=== PATIENT | female | born 1970 | race American Indian/Alaskan Native ===

== ENCOUNTER 2017-09-26 21:47 | Inpatient (IN) | payer MEDICAID ==
[2017-09-26 22:16] LABS: Basophils % (Auto) 0.3 % (0.0-1.8); Eosinophils % (Auto) 1.3 % (0.0-4.3); Hemoglobin 12.2 gm/dl (10.1-14.3); Mean Corpuscular HGB Conc 31 % (30-34); Mean Corpuscular Volume 74 fl (79-97); Platelet Count 197 K/mm3 (140-440); Red Blood Count 5.24 M/mm3 (3.65-5.03); White Blood Count 4.9 K/mm3 (4.5-11.0)
[2017-09-26 22:27] LABS: Mean Corpuscular Hemoglobin 23 pg (28-32); Red Cell Distribution Width 20.3 % (13.2-15.2)
[2017-09-26 22:37] LABS: Anion Gap 19 mmol/L; BUN/Creatinine Ratio 22; Blood Urea Nitrogen 13 mg/dL (7-17); Calcium 8.9 mg/dL (8.4-10.2); Carbon Dioxide 22 mmol/L (22-30); Chloride 105.1 mmol/L (98-107); Glucose 100 mg/dL (65-100); Sodium 142 mmol/L (137-145)
[2017-09-27] MEDS ORDERED: LASIX IV ONE (03:06)
[2017-09-27] MEDS ORDERED: NITROSTAT SL ONE (03:06)
--- NOTE | 2017-09-27 03:11 | Emergency Department Report ---
ED Shortness of Breath HPI - General Chief Complaint: Chest Pain Stated Complaint: CHEST PAIN/SOB Time Seen by Provider: 09/27/17 02:58 Source: patient Mode of arrival: Ambulatory Limitations: No Limitations - History of Present Illness Initial Comments: Patient is 47-year-old female with history of dilated cardiomyopathy, hypertension and hyperthyroidism present to the ER with shortness of breath, diffuse swelling, chest pain for the last 4 days getting worse since last night. Patient denied any fever, nausea or vomiting. Patient stated that she is not compliant with her medications. MD Complaint: shortness of breath, chest pain - Related Data Allergies Allergy/AdvReac Type Severity Reaction Status Date / Time lisinopril AdvReac Shortness Verified 09/26/17 21:57 of Breath ED Review of Systems ROS: Stated complaint: CHEST PAIN/SOB Other details as noted in HPI Comment: All other systems reviewed and negative Constitutional: denies: chills, fever Respiratory: denies: cough, orthopnea, shortness of breath, SOB with exertion Cardiovascular: chest pain, palpitations, dyspnea on exertion, orthopnea, edema , paroxysmal nocturnal dyspnea Gastrointestinal: denies: abdominal pain, nausea, vomiting, diarrhea, constipation, hematemesis, melena, hematochezia Genitourinary: denies: urgency, dysuria, frequency, hematuria Neurological: denies: headache, weakness, numbness, paresthesias ED Past Medical Hx - Past Medical History Hx Hypertension: Yes Hx Congestive Heart Failure: Yes Additional medical history: Hyperthyroid - Surgical History Additional Surgical History: C/S - Social History Smoking Status: Never Smoker Substance Use Type: None ED Physical Exam - General Limitations: No Limitations General appearance: alert, in distress (moderate respiratory distress) - Head Head exam: Present: atraumatic, normocephalic, normal inspection - Eye Eye exam: Present: normal appearance, PERRL - ENT ENT exam: Present: normal exam, normal orophraynx, mucous membranes moist - Neck Neck exam: Present: normal inspection, full ROM. Absent: tenderness, meningismus, lymphadenopathy - Respiratory Respiratory exam: Present: rales, decreased breath sounds. Absent: wheezes, rhonchi, stridor - Cardiovascular Cardiovascular Exam: Present: tachycardia, gallop - GI/Abdominal GI/Abdominal exam: Present: soft, normal bowel sounds. Absent: tenderness, guarding, rebound, rigid, mass, bruit, pulsatile mass, hernia - Extremities Exam Extremities exam: Present: normal inspection, pedal edema. Absent: calf tenderness - Back Exam Back exam: Present: normal inspection, full ROM. Absent: CVA tenderness (R), CVA tenderness (L), muscle spasm, paraspinal tenderness, vertebral tenderness - Neurological Exam Neurological exam: Present: alert, oriented X3, CN II-XII intact, normal gait - Skin Skin exam: Present: warm, intact, normal color. Absent: cyanosis ED Course Vital Signs 09/26/17 09/27/17 09/27/17 21:58 02:00 05:02 Temperature 98.2 F Pulse Rate 106 H 95 H 95 H Respiratory 20 20 Rate Blood Pressure 184/123 164/119 Blood Pressure 164/119 [Left] O2 Sat by Pulse 98 100 Oximetry ED Medical Decision Making - Lab Data Result diagrams: 09/26/17 22:01 09/26/17 22:01 - EKG Data -: EKG Interpreted by Nh EKG shows normal: sinus rhythm Rate: tachycardia - EKG Data Interpretation: no acute changes - Radiology Data Radiology results: image reviewed Chest x-ray showed Pulmonary edema, right pleural effusion. - Medical Decision Making Discussed with Dr. Annemarie Posye, I presented the patient to her, she agreed to admit the patient to her service. Critical care attestation.: If time is entered above; I have spent that time in minutes in the direct care of this critically ill patient, excluding procedure time. ED Disposition Clinical Impression: Shortness of breath, Chest pain, Malignant hypertension, Acute exacerbation of CHF (congestive heart failure) Disposition: -09 OP ADMIT IP TO THIS HOSP Is pt being admited?: Yes Condition: Stable Instructions: Chest Pain (ED), Hypertension (ED) Referrals: PRIMARY CARE, [Primary Care Provider] - 3-5 Days
[2017-09-27] MEDS ORDERED: BABY ASPIRIN PO ONE (05:12)
[2017-09-27] MEDS ORDERED: TYLENOL PO PRN (06:06)
[2017-09-27] MEDS ORDERED: MILK OF MAGNESIA PO PRN (06:06)
[2017-09-27] MEDS ORDERED: DULCOLAX PR PRN (06:06)
[2017-09-27] MEDS ORDERED: ZOFRAN IV PRN (06:06)
--- NOTE | 2017-09-27 06:16 | History and Physical Report ---
History of Present Illness Date of examination: 09/27/17 History of present illness: 47-year-old woman with a history of CHF, hypertension, hyperthyroidism comes to the emergency room complaining of shortness of breath, PND, orthropnea and lower extremity edema sice thursday. Also complaining of chest pain in the epigastric area described as sharp, intermittent, lasting for a few seconds, intensity 3/10, no radiation, cannot identify exacerbating or relieving factors. Denies nausea vomiting, diaphoresis or palpitation. States she is compliant with mediations,but ran out of her thyroid medications Review Of Systems: Constitutional: no weight loss Ears, eyes, nose, mouth and throat: no nasal congestion, no nasal discharge, no sinus pressure, blurry vision, diplopia Neck: No neck pain or rigidity. Cardiovascular: no palpitations Respiratory: No cough Gastrointestinal: no abdominal pain, hematochezia Genitourinary : no dysuria, frequency , hematuria Musculoskeletal: no muscle ache Integumentary: no rash, no pruritis Neurological: no parathesias, focal weakness Endocrine: no cold or heat intolerance, no polyuria or polydipsia Hematologic/Lymphatic: no easy bruising, no easy bleeding, no gland swelling Allergic/Immunologic: no urticaria, no angioedema. PAST MEDICAL HISTORY:CHF, hypertension, hyperthyroidism PAST SURGICAL HISTORY: None SOCIAL HISTORY: No alcohol, tobacco, no drugs FAMILY HISTORY: Hypertension Medications and Allergies Allergies Allergy/AdvReac Type Severity Reaction Status Date / Time lisinopril AdvReac Shortness Verified 09/26/17 21:57 of Breath Home Medications Medication Instructions Recorded Confirmed Last Taken Type Carvedilol 12.5 mg PO BID 09/27/17 09/27/17 Unknown History Lasix 40 mg PO DAILY 09/27/17 09/27/17 Unknown History Losartan 100 mg PO DAILY 09/27/17 09/27/17 Unknown History Methimazole 10 mg PO TID 30 Days 09/29/17 Unknown Rx traMADol [Ultram 50 MG tab] 50 mg PO Q6HR PRN #12 tablet 09/29/17 Unknown Rx Exam - Physical Exam Narrative exam: Gen. appearance: Patient lying in bed in no acute distress HEENT: Normocephalic/atraumatic, pupils equal round reactive to light, extra alkaline movement intact, no scleral icterus, no JVD or thyromegaly or nodule, neck is supple, mucous membrane moist, no erythema or exudate Heart: S1-S2, regular rate and rhythm Lungs: Clear to auscultation bilateral breathing comfortable Abdomen: Positive bowel sounds, nontender, nondistended, no organomegaly Extremities: No edema, cyanosis, clubbing Neuro:: Oriented 3 , cranial nerves II-12 intact, speech, motor intact Skin: No rash, nodules, warm dry - Constitutional Vitals: Temp Pulse Resp BP Pulse Ox 98.2 F 95 H 20 164/119 100 09/26/17 21:58 09/27/17 05:02 09/27/17 04:00 09/27/17 05:02 09/27/17 04:00 Results - Labs CBC & Chem 7: 09/28/17 06:41 09/28/17 06:41 Labs: Abnormal lab results 09/26/17 09/26/17 09/27/17 Range/Units 22:01 22:01 03:19 RBC 5.24 H (3.65-5.03) M/mm3 MCV 74 L (79-97) fl MCH 23 L (28-32) pg RDW 20.3 H (13.2-15.2) % Creatinine 0.6 L (0.7-1.2) mg/dL NT-Pro-B Natriuret Pep 3110 H (0-450) pg/mL TSH (0.270-4.200) mlU/mL Free T4 (0.76-1.46) ng/dL 09/27/17 Range/Units 03:19 RBC (3.65-5.03) M/mm3 MCV (79-97) fl MCH (28-32) pg RDW (13.2-15.2) % Creatinine (0.7-1.2) mg/dL NT-Pro-B Natriuret Pep (0-450) pg/mL TSH 0.007 L (0.270-4.200) mlU/mL Free T4 1.92 H (0.76-1.46) ng/dL - Imaging and Cardiology EKG: image reviewed Chest x-ray: image reviewed Assessment and Plan Assessment CHF exacerbation, acute on chronic, systolic dysfunction Chest pain Hypertension Hyperthyroidism Plan Admit to medicine Diurese with IV Lasix Continue beta lavon, aspirin ARB Check cardiac enzymes, echo Consult cardiology, obtain stress test when heart failure stable DVT prophylaxis
--- NOTE | 2017-09-27 06:48 | XRay Report ---
FINAL REPORT PROCEDURE: XR CHEST 1V AP TECHNIQUE: Chest radiograph anteroposterior view. CPT 80197 HISTORY: chest pain COMPARISON: No prior studies are available for comparison. FINDINGS: Heart: The heart is enlarged Mediastinum/Vessels: Normal. Lungs/Pleural space: Lungs are well-expanded. There is small bilateral pleural effusions. There are no pneumothoraces. There are no discrete infiltrates.. Bony thorax: No acute osseous abnormality. Life support devices: None. IMPRESSION: Cardiomegaly with small bilateral pleural effusions..
[2017-09-27 07:28] LABS: Creatine Kinase MB 3.2 ng/mL (0.0-4.0)
[2017-09-27 07:29] LABS: Creatine Kinase 91 units/L (30-135)
[2017-09-27] MEDS: LOVENOX SUB-Q SCH (10:33)
--- NOTE | 2017-09-27 10:33 | Consultation ---
History of Present Illness Consult date: 09/27/17 Consult reason: congestive heart failure History of present illness: 48 year old -[place] female presenting with shortness of breath. She has a history of dilated cardiomyopathy and is being followed by a director of rooms in [facility]. She denies any chest pains or palpitations. Has some increase in abdominal girth and some pedal edema Past History Past Medical History: heart failure, hyperthyroidism, hypertension Past Surgical History: No surgical history Social history: denies: smoking, alcohol abuse Family history: no significant family history Medications and Allergies Allergies Allergy/AdvReac Type Severity Reaction Status Date / Time lisinopril AdvReac Shortness Verified 09/26/17 21:57 of Breath Home Medications Medication Instructions Recorded Confirmed Last Taken Type Carvedilol 12.5 mg PO BID 09/27/17 09/27/17 Unknown History Lasix 40 mg PO DAILY 09/27/17 09/27/17 Unknown History Losartan 100 mg PO DAILY 09/27/17 09/27/17 Unknown History Methimazole 10 mg PO TID 09/27/17 09/27/17 Unknown History Active Meds: Active Medications Acetaminophen (Tylenol) 650 mg PO Q4H PRN PRN Reason: Pain MILD(1-3)/Fever >100.5/ROE Bisacodyl (Dulcolax) 10 mg MI QDAY PRN PRN Reason: Constipation unrelieved by MOM Carvedilol (Coreg) 12.5 mg PO BID GINO Enoxaparin Sodium (Lovenox) 40 mg SUB-Q QDAY GINO Furosemide (Lasix) 40 mg IV BID@0600,1800 [facility] Losartan Potassium (Cozaar) 100 mg PO DAILY GINO Magnesium Hydroxide (Milk Of Magnesia) 30 ml PO Q4H PRN PRN Reason: Constipation Methimazole (Tapazole) 10 mg PO TID GINO Metoprolol Tartrate (Lopressor) 25 mg PO BID GINO Ondansetron HCl (Zofran) 4 mg IV Q8H PRN PRN Reason: N/V unrelieved by Reglan Oxycodone/Acetaminophen (Percocet 5/325) 1 tab PO Q6H PRN PRN Reason: Pain, Moderate (4-6) Review of Systems Constitutional: weight gain, fatigue, weakness, malaise Ears, nose, mouth and throat: deferred Cardiovascular: shortness of breath, dyspnea on exertion Respiratory: cough, cough with sputum, no wheezing Gastrointestinal: no abdominal pain, no nausea, no vomiting Genitourinary Female: no dyspareunia, no dysmenorrhea, no pelvic pain Musculoskeletal: no neck stiffness, no neck pain, no muscle weakness, no muscle cramps Integumentary: no rash, no pruritis Neurological: no weakness, no parathesias, no numbness, no headaches Endocrine: heat intolerance, no polydipsia, no polyuria Hematologic/Lymphatic: no easy bruising, no easy bleeding Allergic/Immunologic: no urticaria, no allergic rhinitis Physical Examination Vital Signs Temp Pulse Resp BP Pulse Ox 98.2 F 106 H 20 184/123 98 09/26/17 21:58 09/26/17 21:58 09/26/17 21:58 09/26/17 21:58 09/26/17 21:58 General appearance: no acute distress, cachectic HEENT: Positive: PERRL, Normocephaly Neck: Positive: neck supple, trachea midline, JVD/HJR Cardiac: Positive: Regular Rate, S1/S2, S3, Systolic Murmur, PMI, Dilated, Laterally Displaced Lungs: Positive: clear to auscultation, No Wheeze, Rales, Rhonchi Neuro: Positive: Grossly Intact Abdomen: Positive: Unremarkable, Soft, Distended Extremities: Present: +2 Edema Results 09/26/17 22:01 09/26/17 22:01 Cardiac Enzymes 09/27/17 Range/Units 06:44 CK-MB (CK-2) 3.2 (0.0-4.0) ng/mL CBC 09/26/17 Range/Units 22:01 WBC 4.9 (4.5-11.0) K/mm3 RBC 5.24 H (3.65-5.03) M/mm3 Hgb 12.2 (10.1-14.3) gm/dl Hct 39.0 (30.3-42.9) % Plt Count 197 (140-440) K/mm3 Lymph # 1.3 (1.2-5.4) K/mm3 [place] # 0.3 (0.0-0.8) K/mm3 Eos # 0.1 (0.0-0.4) K/mm3 Baso # 0.0 (0.0-0.1) K/mm3 Comprehensive Metabolic Panel 09/26/17 Range/Units 22:01 Sodium 142 (137-145) mmol/L Potassium 4.0 (3.6-5.0) mmol/L Chloride 105.1 (98-107) mmol/L Carbon Dioxide 22 (22-30) mmol/L BUN 13 (7-17) mg/dL Creatinine 0.6 L (0.7-1.2) mg/dL Glucose 100 (65-100) mg/dL Calcium 8.9 (8.4-10.2) mg/dL - EKG Interpretation EKG shows: tachycardia EKG interpretations - Telemetry EKG Rhythm: Sinus Tachycardia Assessment and Plan 1. Acute decompensated chronic combined systolic and diastolic heart failure 2. Hyperthyroidism 3. Systemic arterial hypertension Plan. Check TSH levels. Check echocardiogram. Obtain records from director of rooms at [facility]. Resume home medication
[2017-09-27] MEDS: TAPAZOLE PO SCH ×3 (10:34→22:50)
[2017-09-27] MEDS: LOPRESSOR PO SCH ×2 (10:34→22:55)
[2017-09-27] MEDS: COREG PO SCH ×2 (14:18→22:50)
[2017-09-27] MEDS: COZAAR PO SCH (14:18)
[2017-09-27 14:39] LABS: Creatine Kinase MB 3.1 ng/mL (0.0-4.0)
[2017-09-27 14:42] LABS: Creatine Kinase 70 units/L (30-135)
--- NOTE | 2017-09-27 16:32 | Event Note ---
Date: 09/27/17 Pt admitted today adn had been seen by the admitting doctor. Currently on appropriable Mx for exacerbation, acute on chronic, systolic dysfunction Acute on chronic systolic Heart failure Chest pain Hypertension Hyperthyroidism
[2017-09-27] MEDS: LASIX IV SCH (18:57)
[2017-09-27] MEDS: PERCOCET 5/325 PO PRN (23:39)
[2017-09-28] MEDS: LASIX IV SCH ×2 (06:36→18:28)
[2017-09-28] MEDS: PERCOCET 5/325 PO PRN ×2 (06:36→14:14)
[2017-09-28 07:53] LABS: Anion Gap 18 mmol/L; BUN/Creatinine Ratio 21; Basophils % (Auto) 0.9 % (0.0-1.8); Blood Urea Nitrogen 17 mg/dL (7-17); Calcium 8.2 mg/dL (8.4-10.2); Carbon Dioxide 25 mmol/L (22-30); Chloride 103.6 mmol/L (98-107); Eosinophils % (Auto) 1.4 % (0.0-4.3); Glucose 73 mg/dL (65-100); Hematocrit 37.7 % (30.3-42.9); Hemoglobin 11.9 gm/dl (10.1-14.3); Mean Corpuscular HGB Conc 32 % (30-34); Mean Corpuscular Volume 74 fl (79-97); Platelet Count 172 K/mm3 (140-440); Potassium 4.2 mmol/L (3.6-5.0); Red Blood Count 5.13 M/mm3 (3.65-5.03); Sodium 142 mmol/L (137-145); White Blood Count 3.8 K/mm3 (4.5-11.0)
[2017-09-28 07:59] LABS: Mean Corpuscular Hemoglobin 23 pg (28-32); Red Cell Distribution Width 20.4 % (13.2-15.2)
--- NOTE | 2017-09-28 11:05 | Progress Note ---
Assessment and Plan Acute systolic heart failure Hx of Cardiomopathy since 02/2014 Hyperthyroidism Hypertension Right LE wound Recommendations: Echocardiogram today. Continue medical therapy for systolic heart failure. Subjective Date of service: 09/28/17 Interval history: Patient reports she is feeling better since initial treatment. Objective Vital Signs Temp Pulse Resp BP BP Pulse Ox 09/28/17 09:00 77 09/28/17 05:18 97.5 F L 74 20 115/79 97 09/28/17 01:38 76 09/28/17 00:40 98.3 F 76 20 106/64 96 09/27/17 22:55 90 142/96 09/27/17 22:50 90 142/96 09/27/17 22:00 20 97 09/27/17 20:54 97.9 F 90 18 142/96 97 09/27/17 19:51 97.8 F 82 15 123/82 98 09/27/17 17:40 98.0 F 86 18 124/86 100 09/27/17 14:18 93 H 169/86 09/27/17 13:09 98.0 F 88 18 160/68 100 - Physical Examination General: No Apparent Distress HEENT: Positive: PERRL Cardiac: Positive: Reg Rate and Rhythm Lungs: Positive: Decreased Breath Sounds Neuro: Positive: Grossly Intact Extremities: Present: +1 Edema - Labs and Meds Cardiac Enzymes 09/27/17 Range/Units 13:54 CK-MB (CK-2) 3.1 (0.0-4.0) ng/mL CBC 09/28/17 Range/Units 06:41 WBC 3.8 L (4.5-11.0) K/mm3 RBC 5.13 H (3.65-5.03) M/mm3 Hgb 11.9 (10.1-14.3) gm/dl Hct 37.7 (30.3-42.9) % Plt Count 172 (140-440) K/mm3 Lymph # 1.4 (1.2-5.4) K/mm3 [place] # 0.3 (0.0-0.8) K/mm3 Eos # 0.1 (0.0-0.4) K/mm3 Baso # 0.0 (0.0-0.1) K/mm3 Comprehensive Metabolic Panel 09/28/17 Range/Units 06:41 Sodium 142 (137-145) mmol/L Potassium 4.2 (3.6-5.0) mmol/L Chloride 103.6 (98-107) mmol/L Carbon Dioxide 25 (22-30) mmol/L BUN 17 (7-17) mg/dL Creatinine 0.8 (0.7-1.2) mg/dL Glucose 73 (65-100) mg/dL Calcium 8.2 L (8.4-10.2) mg/dL - Imaging and Cardiology EKG: image reviewed
[2017-09-28] MEDS: LOVENOX SUB-Q SCH (11:29)
[2017-09-28] MEDS: COREG PO SCH ×2 (11:31→22:06)
[2017-09-28] MEDS: TAPAZOLE PO SCH ×3 (11:31→22:06)
[2017-09-28] MEDS: COZAAR PO SCH (11:32)
--- NOTE | 2017-09-28 15:21 | Progress Note ---
Assessment and Plan Assessment and plan: 47-year-old female with a history of CHF, hypertension, hyperthyroidism, post cardiomyopathy 4 years ago comes to the emergency room complaining of shortness of breath, PND, orthropnea and lower extremity edema sice thursday. Also complaining of chest pain in the epigastric area described as sharp, intermittent, lasting for a few seconds, intensity 3/10, no radiation, cannot identify exacerbating or relieving factors. Denies nausea vomiting, diaphoresis or palpitation. States he is compliant with mediations, and diet although ate a bit more than usual during but ran out of her thyroid medications Primary auto locator is in [facility] CHF exacerbation, acute on chronic, systolic dysfunction * Cardiology following, continue diuresis, I/O, BB, ARB and reinforce diet precautions Chest pain secondary to CHF * Resolved, continue with statin and antiplatelet therapy Hypertension * Improved Hyperthyroidism * Continue metamazole DVT/GI prophy Plan of care discussed with the patient Anticipate discharge in a day or two Please renew thyroid meds prior to discharge History Interval history: Patient seen and examined in no acute distress. still with some shortness of breath, but no chest pain, nausea and vomiting or fever. Hospitalist Physical - Constitutional Vitals: Temp Pulse Resp BP Pulse Ox 98.3 F 86 16 114/73 98 09/28/17 13:01 09/28/17 13:01 09/28/17 14:14 09/28/17 13:01 09/28/17 13:01 General appearance: Present: no acute distress, cachectic - EENT Eyes: Present: PERRL, EOM intact ENT: hearing intact, clear oral mucosa, dentition normal - Neck Neck: Present: supple, normal ROM - Respiratory Respiratory: bilateral: diminished - Cardiovascular Rhythm: regular Heart Sounds: Present: S1 & S2. Absent: systolic murmur, diastolic murmur - Extremities Extremities: no ischemia, pulses intact, pulses symmetrical, Full ROM Extremity abnormal: edema (+1) Peripheral Pulses: within normal limits - Abdominal General gastrointestinal: soft, non-tender, non-distended, normal bowel sounds - Integumentary Integumentary: Present: clear, warm, dry - Psychiatric Psychiatric: appropriate mood/affect, intact judgment & insight, memory intact, cooperative - Neurologic Neurologic: CNII-XII intact - Allied Health Allied health notes reviewed: nursing Results - Labs CBC & Chem 7: 09/28/17 06:41 09/28/17 06:41 Labs: Laboratory Last Values WBC 3.8 K/mm3 (4.5-11.0) L 09/28/17 06:41 RBC 5.13 M/mm3 (3.65-5.03) H 09/28/17 06:41 Hgb 11.9 gm/dl (10.1-14.3) 09/28/17 06:41 Hct 37.7 % (30.3-42.9) 09/28/17 06:41 MCV 74 fl (79-97) L 09/28/17 06:41 MCH 23 pg (28-32) L 09/28/17 06:41 MCHC 32 % (30-34) 09/28/17 06:41 RDW 20.4 % (13.2-15.2) H 09/28/17 06:41 Plt Count 172 K/mm3 (140-440) 09/28/17 06:41 Lymph % (Auto) 37.4 % (13.4-35.0) H 09/28/17 06:41 [place] % (Auto) 7.3 % (0.0-7.3) 09/28/17 06:41 Eos % (Auto) 1.4 % (0.0-4.3) 09/28/17 06:41 Baso % (Auto) 0.9 % (0.0-1.8) 09/28/17 06:41 Lymph # 1.4 K/mm3 (1.2-5.4) 09/28/17 06:41 [place] # 0.3 K/mm3 (0.0-0.8) 09/28/17 06:41 Eos # 0.1 K/mm3 (0.0-0.4) 09/28/17 06:41 Baso # 0.0 K/mm3 (0.0-0.1) 09/28/17 06:41 Seg Neutrophils % 53.0 % (40.0-70.0) 09/28/17 06:41 Seg Neutrophils # 2.0 K/mm3 (1.8-7.7) 09/28/17 06:41 Sodium 142 mmol/L (137-145) 09/28/17 06:41 Potassium 4.2 mmol/L (3.6-5.0) 09/28/17 06:41 Chloride 103.6 mmol/L (98-107) 09/28/17 06:41 Carbon Dioxide 25 mmol/L (22-30) 09/28/17 06:41 Anion Gap 18 mmol/L 09/28/17 06:41 BUN 17 mg/dL (7-17) 09/28/17 06:41 Creatinine 0.8 mg/dL (0.7-1.2) 09/28/17 06:41 Estimated GFR > 60 ml/min 09/28/17 06:41 BUN/Creatinine Ratio 21 % 09/28/17 06:41 Glucose 73 mg/dL (65-100) 09/28/17 06:41 Calcium 8.2 mg/dL (8.4-10.2) L 09/28/17 06:41 Total Creatine Kinase 70 units/L (30-135) 09/27/17 13:54 CK-MB (CK-2) 3.1 ng/mL (0.0-4.0) 09/27/17 13:54 CK-MB (CK-2) Rel Index 4.4 (0-4) H 09/27/17 13:54 Troponin T < 0.010 ng/mL (0.00-0.029) 09/27/17 13:54 NT-Pro-B Natriuret Pep 3110 pg/mL (0-450) H 09/27/17 03:19 TSH 0.007 mlU/mL (0.270-4.200) L 09/27/17 03:19 Free T4 1.92 ng/dL (0.76-1.46) H 09/27/17 03:19 - Imaging and Cardiology Chest x-ray: image reviewed (vascular congestion)
[2017-09-29] MEDS: PERCOCET 5/325 PO PRN ×2 (03:22→10:27)
[2017-09-29] MEDS: LASIX IV SCH (05:47)
[2017-09-29] MEDS: TAPAZOLE PO SCH ×2 (08:57→14:44)
[2017-09-29] MEDS: LOVENOX SUB-Q SCH (08:59)
[2017-09-29] MEDS: COREG PO SCH (08:59)
[2017-09-29] MEDS: COZAAR PO SCH (08:59)
--- NOTE | 2017-09-29 12:28 | Discharge Summary ---
Providers - Providers Date of Admission: 09/27/17 06:06 Date of discharge: 09/29/17 Attending physician: TETE NIETO 09/27/17 06:06 Consult to Physician [CONS] Routine Consulting Provider: BAL TORO Reason For Exam: chf Place consult to:: cardiology Notified:: Y Was contact made?: Yes If yes, spoke with:: DR CALDWELL Time called:: 08:45 Consult to Wound/ET Nurse [CONS] Routine Reason For Exam: wound eval Primary care physician: SENIOR WEB SERVICES DEVELOPER Hospitalization Condition: Good Hospital course: patient is 47 yo with hypertension, CHF. She presented with chest pain and shortness of breath. She was diagnosed with CHF exacerbation, started on Lasix and admitted. Cardiology was consulted and she was evaluated. her symptoms improved, shortness of breath resolved. She was subsequently discharged home on 09/28/17 . Chest pain due to GERD. Total time spent on discharge,33 mins. Disposition: TO HOME OR SELFCARE - Discharge Diagnoses (1) Acute on chronic systolic CHF (congestive heart failure) Status: Acute (2) Hyperthyroidism Status: Acute (3) Chest pain Status: Acute Qualifiers: Chest pain type: other chest pain Qualified Code(s): R07.89 - Other chest pain; R07.8 - Other chest pain (4) HTN (hypertension) Status: Acute (5) GERD (gastroesophageal reflux disease) Status: Acute Core Measure Documentation - Palliative Care Palliative Care/ Comfort Measures: Not Applicable - Core Measures Any of the following diagnoses?: heart failure - Heart Failure Discharge Requirements AURELIA/ARB for LVSD if EF <40%: Yes Beta lavon at discharge: Yes Exam - Constitutional Vitals: Temp Pulse Resp BP Pulse Ox 98.4 F 76 16 112/76 98 09/29/17 08:17 09/29/17 08:17 09/29/17 10:27 09/29/17 08:17 09/29/17 08:17 General appearance: Present: no acute distress, obese - EENT ENT: hearing intact - Neck Neck: Present: supple - Respiratory Respiratory effort: normal Respiratory: bilateral: CTA - Cardiovascular Rhythm: regular Heart Sounds: Present: S1 & S2 - Abdominal General gastrointestinal: Present: soft, non-distended - Neurologic Neurologic: moves all extremities Plan Activity: no restrictions Diet: low fat, low cholesterol, low salt Additional Instructions: 1.Follow up with PCP in 1 week. 2.Follow up with Cardiology in 1 week Follow up with: PRIMARY CARE,MD [Primary Care Provider] - 3-5 Days Prescriptions: Methimazole 10 mg PO TID 30 Days traMADol [Ultram 50 MG tab] 50 mg PO Q6HR PRN #12 tablet PRN Reason: Pain
[2017-09-29 13:37] VITALS: BP 130/79
--- NOTE | 2017-09-29 13:46 | Query- General ---
Venu Hebert Dasha Date:___09/29/17 Cloth Desizing Range Operator Chief/CDS: Eber Phone#:___[phone] Exercise your independent professional judgment when responding to this query. Questions asked do not imply a particular answer is desired or expected. We greatly appreciate your clarification on this issue. Clinical Documentation States: 47 year old female was admitted on 09/27/17 The progress note (Dr. Olivares 09/28/17) states " 47-year-old female with a history of CHF, hypertension, hyperthyroidism, post cardiomyopathy 4 years ago comes to the emergency room complaining of shortness of breath, PND, orthropnea and lower extremity edema CHF exacerbation, acute on chronic, systolic dysfunction Hypertension: Improved " Clinical Findings Show (include reference to source document): Blood pressure: 184/123 Given the above clinical scenario can you please provide an appropriate diagnosis based on your knowledge of the patient: PHYSICIAN RESPONSE: [ ] Hypertensive urgency [ x ] Hypertensive emergency [ ] Hypertensive crisis [ ] Other (Please specify) [ ] Clinically undeterminable Present on Admission: [x ] Yes (Y) [ ] Clinically undeterminable (W) [ ]No(N) Please also document response in your Progress Notes and/or Discharge Summary and indicate if the condition was present on admission. VANNESA
--- NOTE | 2017-09-29 14:46 | Progress Note ---
Assessment and Plan Acute systolic heart failure Hx of Cardiomopathy since 02/2014 Hyperthyroidism Hypertension Right LE wound Echocardiogram reveals a left ventricle ejection fraction 30-35%. Recommend: Continue medical management of heart failure. Subjective Date of service: 09/29/17 Interval history: Patient appears well. She denies shortness of breath and chest pain. Objective Vital Signs Temp Pulse Resp BP Pulse Ox 09/29/17 12:31 98.3 F 129 H 18 130/79 99 09/29/17 12:24 98.3 F 77 18 114/81 96 09/29/17 10:27 16 09/29/17 09:00 68 09/29/17 08:17 98.4 F 76 18 112/76 98 09/29/17 00:35 77 95 09/29/17 00:34 98.8 F 78 16 107/73 98 09/28/17 20:47 96 H 130/84 95 09/28/17 20:46 97.8 F 96 H 20 130/84 96 09/28/17 19:50 77 09/28/17 16:31 98.2 F 73 18 110/75 97 09/28/17 15:40 99 - Physical Examination General: No Apparent Distress HEENT: Positive: PERRL Cardiac: Positive: Reg Rate and Rhythm Lungs: Positive: Decreased Breath Sounds Neuro: Positive: Grossly Intact Extremities: Present: +1 Edema - Imaging and Cardiology EKG: image reviewed
== END 2017-09-29 17:19 | disposition home or self-care (01) | DRG 304 ==
LOC: ED 21:47 → 4A 09-27 06:06
PROVIDERS: ADMIT Internal Medicine; ATTEND Internal Medicine
DX: I16.1 Hypertensive emergency (principal); I50.43 Acute on chronic combined systolic (congestive) and diastolic (congestive) heart failure; I11.0 Hypertensive heart disease with heart failure; E05.90 Thyrotoxicosis, unspecified without thyrotoxic crisis or storm; Z88.8 Allergy status to other drugs, medicaments and biological substances; I42.0 Dilated cardiomyopathy; Z82.49 Family history of ischemic heart disease and other diseases of the circulatory system; S81.801A Unspecified open wound, right lower leg, initial encounter; X58.XXXA Exposure to other specified factors, initial encounter; Y93.89 Activity, other specified; Y92.89 Other specified places as the place of occurrence of the external cause; Y99.8 Other external cause status
CPT/HCPCS: 36415; 71010; 80048; 82550; 82553; 83880; 84439; 84443; 84484; 85025; 93005; 93010; 93306; 96374; 99285; J1650; J1940

== ENCOUNTER 2017-10-28 10:19 | Emergency (ER) | payer MEDICAID ==
--- NOTE | 2017-10-28 12:25 | Emergency Department Report ---
HPI - General Chief Complaint: Extremity Problem,Nontraumatic Time Seen by Provider: 10/28/17 12:11 - HPI HPI: 47-year-old female presents to the emergency department by EMS from home with complaint of some bleeding from a chronic right lower extremity wound. The patient says she's been dealing with this wound for about 10 years. 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 Since that time it is gotten progressively larger. She does get wound care done and there has been no recent trauma but for some reason this morning it started bleeding moderately. She has a history of CHF and there is some listing of a history of vascular insufficiency. She has a primary care physician but has not seen them regarding her symptoms. She does not think that she has seen a vascular physician before. She had a pressure dressing placed by EMS but did not receive any other medications or treatment. ED Past Medical Hx - Past Medical History Hx Hypertension: Yes Hx Congestive Heart Failure: Yes Hx Diabetes: No Hx Asthma: No Hx COPD: No Additional medical history: Hyperthyroid - Surgical History Additional Surgical History: C/S - Social History Smoking Status: Never Smoker Substance Use Type: None - Medications Home Medications: Home Medications Medication Instructions Recorded Confirmed Last Taken Type Carvedilol 12.5 mg PO BID 09/27/17 10/28/17 Unknown History Lasix 40 mg PO DAILY 09/27/17 10/28/17 Unknown History Losartan 100 mg PO DAILY 09/27/17 10/28/17 Unknown History Methimazole 10 mg PO TID 30 Days 09/29/17 10/28/17 Unknown Rx ED Review of Systems ROS: Stated complaint: RT LEG WOUND Other details as noted in HPI Comment: All other systems reviewed and negative Constitutional: denies: chills, fever Eyes: denies: eye pain, eye discharge, vision change ENT: denies: ear pain, throat pain Respiratory: denies: cough, shortness of breath, wheezing Cardiovascular: denies: chest pain, palpitations Gastrointestinal: denies: abdominal pain, nausea, diarrhea Genitourinary: denies: urgency, dysuria, discharge Skin: lesions (RLE wound). denies: pruritus Neurological: denies: headache, numbness Physical Exam - Physical Exam Vital Signs: Vital Signs 10/28/17 11:58 Temperature 98.2 F Pulse Rate 104 H Respiratory 20 Rate Blood Pressure 179/111 O2 Sat by Pulse 97 Oximetry Physical Exam: GENERAL: The patient is well-developed well-nourished. HENT: Normocephalic. Atraumatic. Patient has moist mucous membranes. EYES: Extraocular motions are intact. Pupils equal reactive to light bilaterally. NECK: Supple. Trachea is midline. CHEST/LUNGS: Clear to auscultation. There is no respiratory distress noted. HEART/CARDIOVASCULAR: Regular. There is no tachycardia. There is no murmur. ABDOMEN: Abdomen is soft, nontender. Patient has normal bowel sounds. There is no abdominal distention. SKIN: There is a moderate sized stage II to 3 anterior distal right tib-fib venous ulcer. When it is unwrapped, there is a small amount of venous oozing seen from the inferior portion of this ulcer. There is no purulent discharge or surrounding erythema. NEURO: The patient is awake, alert, and oriented. The patient is cooperative. The patient has no focal neurologic deficits. The patient has normal speech. MUSCULOSKELETAL: There is no tenderness or deformity. There is no limitation range of motion. There is no evidence of acute injury. Patient has pedal pulses heard with pencil Doppler. ED Course Vital Signs 10/28/17 11:58 Temperature 98.2 F Pulse Rate 104 H Respiratory 20 Rate Blood Pressure 179/111 O2 Sat by Pulse 97 Oximetry ED Medical Decision Making - Lab Data Result diagrams: 10/28/17 12:30 10/28/17 12:30 - Radiology Data Radiology results: image reviewed interpreted by me: X-ray of the right tib-fib does not show any fracture, dislocation or signs of osteomyelitis. - Medical Decision Making Patient presents with a chronic right lower cavity wound that started bleeding earlier today. Apparently was moderate bleeding when she woke up but by the time I see the wound it is only some venous oozing. She was reevaluated multiple times over multiple hours and the bleeding stopped prior to discharge. Labs are unremarkable. X-ray did not show any signs of fracture, dislocation or osteomyelitis. The wound does not appear to have any acute infection. There was some small amount of Surgicel placed and then a pressure dressing. She was given referrals for local wound care and vascular physician. She will return to the ER with any worsening of her symptoms or any acute distress. Vital signs stable throughout course including being afebrile. Critical Care Time: No Critical care attestation.: If time is entered above; I have spent that time in minutes in the direct care of this critically ill patient, excluding procedure time. ED Disposition Clinical Impression: Bleeding from wound HTN (hypertension) Qualifiers: Hypertension type: essential hypertension Qualified Code(s): I10 - Essential ( primary) hypertension Ulcer of right leg Qualifiers: Non-pressure ulcer stage: unspecified non-pressure ulcer stage Qualified Code(s ): L97.919 - Non-pressure chronic ulcer of unspecified part of right lower leg with unspecified severity Disposition: DC- TO HOME OR SELFCARE Is pt being admited?: No Condition: Stable Instructions: Chronic Wound Care (ED), Hypertension (ED) Additional Instructions: Please follow-up with your primary care physician in the next few days. I've given her referral for a local vascular doctor, Dr. Carroll, regarding your chronic leg wound. I have also given you a referral for a local wound care center. Please take your blood pressure medication. Try and stay away from foods that are high in salt and caffeinated products to help with your blood pressure. Keep a blood pressure log. Referrals: PRIMARY CARE, [Primary Care Provider] - 3-5 Days EVANGELINA CARROLL MD [Staff Physician] - 3-5 Days [facility] [Outside] - 3-5 Days Time of Disposition: 17:31
[2017-10-28 12:53] LABS: Mean Corpuscular HGB Conc 30 % (30-34); Mean Corpuscular Volume 75 fl (79-97); Platelet Count 179 K/mm3 (140-440); Red Blood Count 5.08 M/mm3 (3.65-5.03)
[2017-10-28 13:00] LABS: Hematocrit 38.1 % (30.3-42.9); Hemoglobin 11.5 gm/dl (10.1-14.3); Mean Corpuscular Hemoglobin 23 pg (28-32)
[2017-10-28 13:03] LABS: INR 1.11 (0.87-1.13)
[2017-10-28 13:04] LABS: Partial Thromboplastin Time 35.4 Sec. (24.2-36.6)
[2017-10-28 13:05] LABS: BUN/Creatinine Ratio 20; Blood Urea Nitrogen 12 mg/dL (7-17); Calcium 9.1 mg/dL (8.4-10.2); Hemolysis Index 24
[2017-10-28 13:48] LABS: Band Neutrophils # (Manual) 0.1 K/mm3; Basophils % (Manual) 0 % (0.0-1.8); Eosinophils % (Manual) 0 % (0.0-4.3); Monocytes % (Manual) 4.3 % (0.0-7.3); Total Cells Counted 94
[2017-10-28 13:51] LABS: Poikilocytosis Few
[2017-10-28 16:17] VITALS: BP 179/88
[2017-10-28] MEDS ORDERED: NORCO 5/325 PO ONE (17:11)
[2017-10-28] MEDS ORDERED: COREG PO ONE (17:27)
--- NOTE | 2017-10-28 23:11 | XRay Report ---
FINAL REPORT PROCEDURE: XR TIBIA FIBULA 2V RT TECHNIQUE: RIGHT tibia and fibula radiographs, AP and lateral views. CPT 78780 HISTORY: RLE wound, pain, bleeding COMPARISON: No prior studies are available for comparison. FINDINGS: There is no acute fracture. There is periosteal thickening of the distal tibia suggesting old fracture or possible chronic osteomyelitis. There is a wound in the soft tissues of the distal lower extremity the medially. There is no subcutaneous air or foreign body. There are diffuse vascular calcifications. The knee and ankle joints are intact.. IMPRESSION: There is no acute fracture. There is periosteal thickening of the distal tibia suggesting old fracture or possible chronic osteomyelitis. There is a wound in the soft tissues of the distal lower extremity the medially.
== END 2017-10-28 17:45 | disposition home or self-care (01) ==
LOC: ED 10:19
DX: L97.919 Non-pressure chronic ulcer of unspecified part of right lower leg with unspecified severity (principal); I10 Essential (primary) hypertension; I50.9 Heart failure, unspecified; E05.90 Thyrotoxicosis, unspecified without thyrotoxic crisis or storm
CPT/HCPCS: 36415; 80048; 85007; 85025; 85610; 85730; 99284

== ENCOUNTER 2018-12-01 10:04 | Outpatient (CLI) | payer OTHER ==
[2018-12-01] MEDS ORDERED: XYLOCAINE TOPICAL 4% TP ONE (10:15)
[2018-12-01] MEDS ORDERED: AD OINTMENT TP PRN (10:15)
== END 2018-12-01 10:05 | disposition home or self-care (01) ==
LOC: WOUND 10:04
PROVIDERS: ATTEND Surgery
DX: I87.313 Chronic venous hypertension (idiopathic) with ulcer of bilateral lower extremity (principal); L97.812 Non-pressure chronic ulcer of other part of right lower leg with fat layer exposed; L97.522 Non-pressure chronic ulcer of other part of left foot with fat layer exposed; E03.9 Hypothyroidism, unspecified
CPT/HCPCS: 11042; 11045; G0463; 99205; 99215; A6250

== ENCOUNTER 2018-12-01 11:30 | Outpatient (CLI) | payer OTHER | END 2018-12-01 11:31 | disposition home or self-care (01) | LOC: LAB 11:30 | PROVIDERS: ATTEND Surgery | DX: I87.311 Chronic venous hypertension (idiopathic) with ulcer of right lower extremity (principal); I11.0 Hypertensive heart disease with heart failure; I50.23 Acute on chronic systolic (congestive) heart failure; K21.9 Gastro-esophageal reflux disease without esophagitis | CPT/HCPCS: 36415; 82947 ==

== ENCOUNTER 2018-12-16 09:40 | Outpatient (CLI) | payer OTHER | END 2018-12-16 09:41 | disposition home or self-care (01) | LOC: WOUND 09:40 ==

== ENCOUNTER 2018-12-22 09:39 | Outpatient (CLI) | payer OTHER ==
[2018-12-22] MEDS ORDERED: XYLOCAINE TOPICAL 4% TP ONE (10:08)
[2018-12-22] MEDS ORDERED: SILVER NITRATE TP ONE (10:08)
== END 2018-12-22 09:40 | disposition home or self-care (01) ==
LOC: WOUND 09:39
PROVIDERS: ATTEND Surgery
DX: I87.311 Chronic venous hypertension (idiopathic) with ulcer of right lower extremity (principal); L97.522 Non-pressure chronic ulcer of other part of left foot with fat layer exposed; L97.812 Non-pressure chronic ulcer of other part of right lower leg with fat layer exposed; E03.9 Hypothyroidism, unspecified

== ENCOUNTER 2018-12-29 10:38 | Outpatient (CLI) | payer OTHER ==
[2018-12-29] MEDS ORDERED: AD OINTMENT TP PRN (11:00)
[2018-12-29] MEDS ORDERED: XYLOCAINE TOPICAL 4% TP ONE (11:00)
== END 2018-12-29 10:39 | disposition home or self-care (01) ==
LOC: WOUND 10:38
PROVIDERS: ATTEND Surgery
DX: I87.313 Chronic venous hypertension (idiopathic) with ulcer of bilateral lower extremity (principal); L97.812 Non-pressure chronic ulcer of other part of right lower leg with fat layer exposed; L97.522 Non-pressure chronic ulcer of other part of left foot with fat layer exposed; E03.9 Hypothyroidism, unspecified
CPT/HCPCS: A6250

== ENCOUNTER 2019-01-05 10:53 | Outpatient (CLI) | payer OTHER ==
[2019-01-05] MEDS ORDERED: XYLOCAINE TOPICAL 4% TP ONE (11:30)
[2019-01-05] MEDS ORDERED: SODIUM CHLORIDE FLUSH SYRINGE 10 ML IV PRN (12:00)
== END 2019-01-05 10:54 | disposition home or self-care (01) ==
LOC: WOUND 10:53
PROVIDERS: ATTEND Surgery
DX: I87.313 Chronic venous hypertension (idiopathic) with ulcer of bilateral lower extremity (principal); L97.812 Non-pressure chronic ulcer of other part of right lower leg with fat layer exposed; L97.522 Non-pressure chronic ulcer of other part of left foot with fat layer exposed; E03.9 Hypothyroidism, unspecified
CPT/HCPCS: 15271; 15272; Q4196

== ENCOUNTER 2019-01-12 11:07 | Outpatient (CLI) | payer OTHER ==
[2019-01-12] MEDS ORDERED: XYLOCAINE TOPICAL 4% TP ONE (11:30)
[2019-01-12] MEDS ORDERED: SODIUM CHLORIDE FLUSH SYRINGE 10 ML IV ONE (12:32)
== END 2019-01-12 11:08 | disposition home or self-care (01) ==
LOC: WOUND 11:07
PROVIDERS: ATTEND Surgery
DX: I87.313 Chronic venous hypertension (idiopathic) with ulcer of bilateral lower extremity (principal); L97.812 Non-pressure chronic ulcer of other part of right lower leg with fat layer exposed; L97.522 Non-pressure chronic ulcer of other part of left foot with fat layer exposed; E03.9 Hypothyroidism, unspecified
CPT/HCPCS: 15271; 15272; Q4196

== ENCOUNTER 2019-01-26 11:30 | Outpatient (CLI) | payer OTHER ==
[2019-01-26] MEDS ORDERED: XYLOCAINE TOPICAL 4% TP ONE (11:41)
[2019-01-26] MEDS ORDERED: SODIUM CHLORIDE FLUSH SYRINGE 10 ML IV PRN (11:42)
== END 2019-01-26 11:31 | disposition home or self-care (01) ==
LOC: WOUND 11:30
PROVIDERS: ATTEND Surgery
DX: I87.313 Chronic venous hypertension (idiopathic) with ulcer of bilateral lower extremity (principal); L97.812 Non-pressure chronic ulcer of other part of right lower leg with fat layer exposed; L97.522 Non-pressure chronic ulcer of other part of left foot with fat layer exposed; L95.9 Vasculitis limited to the skin, unspecified; E03.9 Hypothyroidism, unspecified
CPT/HCPCS: 15271; 15272; Q4196

== ENCOUNTER 2019-11-15 13:00 | Outpatient (CLI) | payer OTHER | END 2019-11-15 13:01 | disposition home or self-care (01) | LOC: WOUND 13:00 | PROVIDERS: ATTEND Surgery | DX: I87.313 Chronic venous hypertension (idiopathic) with ulcer of bilateral lower extremity (principal); L97.812 Non-pressure chronic ulcer of other part of right lower leg with fat layer exposed; L97.522 Non-pressure chronic ulcer of other part of left foot with fat layer exposed; L95.9 Vasculitis limited to the skin, unspecified; E03.9 Hypothyroidism, unspecified | CPT/HCPCS: 99214; G0463 ==

== ENCOUNTER 2019-11-29 13:41 | Outpatient (CLI) | payer OTHER | END 2019-11-29 13:42 | disposition home or self-care (01) | LOC: WOUND 13:41 | PROVIDERS: ATTEND Surgery | DX: L97.812 Non-pressure chronic ulcer of other part of right lower leg with fat layer exposed (principal); S91.302D Unspecified open wound, left foot, subsequent encounter; E03.9 Hypothyroidism, unspecified; I10 Essential (primary) hypertension; W45.8XXD Other foreign body or object entering through skin, subsequent encounter | CPT/HCPCS: 99214; G0463 ==

== ENCOUNTER 2019-12-06 13:25 | Outpatient (CLI) | payer OTHER ==
[2019-12-06] MEDS ORDERED: LIDOCAINE (4%) 40 MG/ML TOPICAL SOLN 50 ML BOTTLE TP ONE (13:35)
[2019-12-06] MEDS ORDERED: SODIUM CHLORIDE 0.9% IRR 500 ML BOTTLE IR ONE (13:43)
== END 2019-12-06 13:26 | disposition home or self-care (01) ==
LOC: WOUND 13:25
PROVIDERS: ATTEND Surgery
DX: L97.812 Non-pressure chronic ulcer of other part of right lower leg with fat layer exposed (principal); E03.9 Hypothyroidism, unspecified; I10 Essential (primary) hypertension

== ENCOUNTER 2019-12-21 09:17 | Outpatient (CLI) | payer OTHER ==
[2019-12-21] MEDS ORDERED: LIDOCAINE (4%) 40 MG/ML TOPICAL SOLN 50 ML BOTTLE TP ONE (10:00)
== END 2019-12-21 09:18 | disposition home or self-care (01) ==
LOC: WOUND 09:17
PROVIDERS: ATTEND Surgery
DX: I87.311 Chronic venous hypertension (idiopathic) with ulcer of right lower extremity (principal); L97.812 Non-pressure chronic ulcer of other part of right lower leg with fat layer exposed; E03.9 Hypothyroidism, unspecified